=== PATIENT | female | born 2000 | race Caucasian/White ===

== ENCOUNTER 2022-08-06 23:32 | Emergency (ER) | payer SELFPAY ==
[~2022-08-06] VITALS: Ht 175.3 cm; Wt 59.1 kg
[2022-08-07] MEDS ORDERED: KETOROLAC 60MG 2ML VIAL IM ONE (00:55)
[2022-08-07] MEDS ORDERED: LIDOCAINE 5% (LIDODERM) PATCH TD ONE (00:55)
[2022-08-07] MEDS ORDERED: METH-1165 PO (01:39)
[2022-08-07] MEDS ORDERED: ASPE4PAD TOP (01:39)
[2022-08-07] MEDS ORDERED: methocarbamoL 750 MG TAB PO ONE (01:45)
[2022-08-07 01:46] VITALS: BP 110/66
== END 2022-08-07 01:52 | disposition home or self-care (01) ==
LOC: M ED 23:32
DX: R10.9 Unspecified abdominal pain (principal); Z87.442 Personal history of urinary calculi; Z98.51 Tubal ligation status
CPT/HCPCS: 81001; 87086; 96372; 99283; J1885

== ENCOUNTER → 2022-09-19 | Outpatient (REF) ==
[~2022-09-19] MED LIST: ASPE4PAD TOP; METH-1165 PO
== END ==
LOC: M EMP 08:25
PROVIDERS: ATTEND Family Medicine
DX: Z11.52 Encounter for screening for COVID-19 (principal)